=== PATIENT | male | born 1965 | race Caucasian/White ===

== ENCOUNTER 2017-08-15 04:13 | Emergency (ER) | payer BC ==
[~2017-08-15] VITALS: Ht 188 cm; Wt 103.6 kg
[2017-08-15 04:15] VITALS: BP 166/93; TEMP 97.8
[2017-08-15 05:45] VITALS: PULSE 70
== END 2017-08-15 05:46 | disposition home or self-care (01) ==
LOC: COL.ER 04:13
DX: K64.5 Perianal venous thrombosis (principal)